=== PATIENT | female | born 1985 | race Caucasian/White ===

== ENCOUNTER 2020-05-13 10:33 | Outpatient (RCR) | payer BC, SELFPAY ==
[2020-05-13 11:24] LABS: Beta HCG Quantitative 176.67 mIU/ML
== END 2020-08-11 23:59 | disposition home or self-care (01) ==
LOC: ANHLAB 10:33
PROVIDERS: Visit Provider Obstetrics & Gynecology Gynecology
DX: O26.851 Spotting complicating pregnancy, first trimester (principal); Z3A.00 Weeks of gestation of pregnancy not specified
CPT/HCPCS: 36415; 84702; 85461